=== PATIENT | female | born 1975 | race Caucasian/White ===

== ENCOUNTER 2016-12-04 16:49 | Emergency (ER) | payer MEDICAID ==
[~2016-12-04] VITALS: Wt 64.5 kg
[~2016-12-04 16:49] MED LIST: PREN1TAB12 PEG
[2016-12-04 18:17] LABS: BASOPHILS % 0.3 % (0.0-2.0); EOSINOPHILS # 0.2 10^3/ul (0.0-0.5); HEMATOCRIT 38.4 % (37.0-47.0); HEMOGLOBIN 12.3 g/dl (12.0-16.0); LYMPHOCYTES # 1.9 10^3/ul (0.8-2.9); LYMPHOCYTES % 21.8 % (15.0-51.0); MEAN CORPUSCULAR HEMOGLOBIN 26.9 pg (29.0-33.0); MEAN CORPUSCULAR VOLUME 83.8 fl (82.0-101.0); MEAN PLATELET VOLUME 10.3 fl (7.4-10.4); MONOCYTE # 0.5 10^3/ul (0.3-0.9); MONOCYTES % 5.5 % (0.0-11.0); NEUTROPHILS % 69.9 % (39.0-77.0); PLATELET COUNT 337 10^3/UL (140-415); RED BLOOD COUNT 4.58 10^6/ul (4.20-5.40); RED CELL DISTRIBUTION WIDTH 14.6 % (11.5-14.5); WHITE BLOOD COUNT 8.7 10^3/ul (4.8-10.8)
--- NOTE | 2016-12-04 18:20 | RADRPT ---
PROCEDURE: OB Ultrasound. CLINICAL INDICATION: Positive test. Vaginal bleeding. TECHNIQUE: Ultrasound of the pelvis was performed with transabdominal sonography in the axial and sagittal planes. COMPARISON: No prior study is available for comparison. FINDINGS: There is a single intrauterine gestational sac. pole and yolk sac are present. There is no heart motion. This indicates demise. [place]-rump length is 1.43 cm. Mean sac diameter is 2.46 cm. Menstrual age by ultrasound dates is 7 weeks 4 days. The right ovary is not visualized. The left ovary appears normal measuring 2.1 x 1.6 x 1.4 cm. Color Doppler and pulsed Doppler sonography demonstrate normal flow to the left ovary. There is no other pelvic mass or free fluid. IMPRESSION: 1. demise at 7 weeks 4 days gestational age. RPTAT: QQ .Joel Francisco MD, Date Time Electronically viewed and signed by .Joel Francisco MD, on 12/04/2016 18:20 .R/
[2016-12-04 18:25] LABS: ADD UMIC NO; UR ASCORBIC ACID NEGATIVE (NEGATIVE); UR BILIRUBIN (Dip) NEGATIVE (NEGATIVE); UR BLOOD (Dip) NEGATIVE (NEGATIVE); UR CLARITY CLEAR (CLEAR); UR COLOR YELLOW (YELLOW); UR GLUCOSE (Dip) NEGATIVE (NEGATIVE); UR KETONES (Dip) NEGATIVE (NEGATIVE); UR LEUKOCYTE ESTERASE (Dip) NEGATIVE Leu/ul (NEGATIVE); UR NITRITE (Dip) NEGATIVE (NEGATIVE); UR SPECIFIC GRAVITY (Dip) 1.012 (1.003-1.030); UR TOTAL PROTEIN (Dip) NEGATIVE (NEGATIVE); UR UROBILINOGEN (Dip) NEGATIVE (NEGATIVE)
--- NOTE | 2016-12-04 19:30 | ERD ---
ER Documentation Chief Complaint Date/Time DATE: 12/04/16 TIME: 19:27 Chief Complaint VAG BLEEDING TODAY, MILD PAIN, PT PG, UNKNOWN AGE OF GESTATION HPI This is a 41-year-old female presents to the ER with vaginal bleeding that started today. Patient also complained of mild crampy pelvic pain. Patient does not know how many weeks she has, however she did get a positive test at home. Her last normal menstrual period was October 04, 2016. A0. She denies any urinary frequency or dysuria. She denies any fevers or chills. She denies any vaginal discharge. ROS 12 point review of systems was done, all negative except per HPI. Medications Home Meds Reported Medications Vit/Fe Fumarate/Fa ( 1-1 Tablet) 1 Tab Tablet, 1 PEG DAILY 07/21/11 Allergies Allergies: Coded Allergies: No Known Allergy (Unverified , 12/04/16) PMhx/Soc Medical and Surgical Hx: pt denies Medical Hx, pt denies Surgical Hx Hx Alcohol Use: Yes Hx Substance Use: No Hx Tobacco Use: No Smoking Status: Never smoker Physical Exam Vitals Vital Signs Date Time Temp Pulse Resp B/P Pulse Ox O2 Delivery O2 Flow Rate FiO2 12/04/16 17:01 98.1 75 19 143/70 100 Physical Exam GENERAL: The patient is well developed and appropriate for usual state of health , in no apparent distress. HEENT: Atraumatic. CHEST: Clear to auscultation bilaterally. There are no rales, wheezes or rhonchi. HEART: Regular rate and rhythm. No murmurs, clicks, rubs or gallops. ABDOMEN: Soft, nontender and nondistended. Good bowel sounds. No rebound or guarding. No gross peritonitis. No gross organomegaly or masses. No Guo sign or McBurney point tenderness. BACK: No midline or flank tenderness. NEURO: Alert and oriented. Result Diagram: 12/04/16 1750 Results 24 hrs Laboratory Tests Test 12/04/16 17:50 White Blood Count 8.710^3/ul Red Blood Count 4.5810^6/ul Hemoglobin 12.3g/dl Hematocrit 38.4% Mean Corpuscular Volume 83.8fl Mean Corpuscular Hemoglobin 26.9pg Mean Corpuscular Hemoglobin Concent 32.0g/dl Red Cell Distribution Width 14.6% Platelet Count 40628^3/UL Mean Platelet Volume 10.3fl Neutrophils % 69.9% Lymphocytes % 21.8% Monocytes % 5.5% Eosinophils % 2.0% Basophils % 0.3% Nucleated Red Blood Cells % 0.0/100WBC Neutrophils # 6.010^3/ul Lymphocytes # 1.910^3/ul Monocytes # 0.510^3/ul Eosinophils # 0.210^3/ul Basophils # 0.010^3/ul Nucleated Red Blood Cells # 0.010^3/ul Urine Color YELLOW Urine Clarity CLEAR Urine pH 6.0 Urine Specific [place] 1.012 Urine Ketones NEGATIVEmg/dL Urine Nitrite NEGATIVEmg/dL Urine Bilirubin NEGATIVEmg/dL Urine Urobilinogen NEGATIVEmg/dL Urine Leukocyte Esterase NEGATIVELeu/ul Urine Hemoglobin NEGATIVEmg/dL Urine Glucose NEGATIVEmg/dL Urine Total Protein NEGATIVEmg/dl Beta HCG, Quantitative 60924.0mIU/ml [place] [id number] Radiology Main Line: [phone] DIAGNOSTIC IMAGING REPORT Patient: MENDOZA MAIER : 1975 Age: 41 Sex: F MR #: [id number] DOS: 12/04/16 1744 Ordering MD: PEARL ALFORD PA-C Location: [facility] Room/Bed: PROCEDURE: OB Ultrasound. CLINICAL INDICATION: Positive test. Vaginal bleeding. TECHNIQUE: Ultrasound of the pelvis was performed with transabdominal sonography in the axial and sagittal planes. COMPARISON: No prior study is available for comparison. FINDINGS: There is a single intrauterine gestational sac. pole and yolk sac are present. There is no heart motion. This indicates demise. [place]-rump length is 1.43 cm. Mean sac diameter is 2.46 cm. Menstrual age by ultrasound dates is 7 weeks 4 days. The right ovary is not visualized. The left ovary appears normal measuring 2.1 x 1.6 x 1.4 cm. Color Doppler and pulsed Doppler sonography demonstrate normal flow to the left ovary. There is no other pelvic mass or free fluid. IMPRESSION: 1. demise at 7 weeks 4 days gestational age. RPTAT: QQ .Joel rFancisco MD, MD Date Time Electronically viewed and signed by .Joel Francisco MD, MD on 12/04/2016 18:20 .R/ CC: PEARL ALFORD Procedures/MDM This is a 41-year-old female presents to the ER with vaginal bleeding. Differential diagnosis: Threatened , missed , incomplete , ectopic , molar , UTI, pyelonephritis. Unfortunately patient does appear to be having an , as demise did show on the ultrasound. At this time patient's vital signs are stable she is hemodynamically stable and her pain is controlled. Patient is stable for outpatient follow-up. I explained to patient that she may continue bleeding until the miscarriage is over, I did tell her that she may need a D&C if for some reason her quantitative hCG has not trended down. He is to follow-up with her OB within 48 hours or return to ER sooner if symptoms my medical decision making was shared with the patient she understands and agrees with plan. Departure Diagnosis: Primary Impression: demise Condition: Stable Patient Instructions: Miscarriage Additional Instructions: \Llame al doctor ADITYA y víctor jasen MEME PARA DENTRO DE 1-2 SALDANA.Dgale a la secretaria que nosotros le instruimos hacer esta meme.Avise o llame si chacon condicin se empeora antes de la meme. Regresa aqui si peor o no mejor. TIENES QUE IR CON UN GINECOLOGO PARA SEGUIMIENTO PEARL ALFORD Dec 04, 2016 19:30
[2016-12-04 19:33] VITALS: BP 142/93; PULSE 70; RESP 16; TEMP 98.1
== END 2016-12-04 19:34 | disposition home or self-care (01) ==
LOC: FTE 16:49
DX: O02.1 Missed abortion (principal)
CPT/HCPCS: 36415; 76801; 81003; 84702; 85025; 86900; 86901; Z7502